=== PATIENT | female | born 1970 | race Hispanic/Latino ===

== ENCOUNTER 2016-04-04 21:45 | Emergency (ER) | payer MEDICARE, MEDICAID ==
[~2016-04-04] VITALS: Ht 162.6 cm; Wt 95.0 kg
[~2016-04-04 21:45] MED LIST: CYCL5TAB PO; PRE20 PO
[2016-04-04 22:02] VITALS: BP 183/110; PULSE 88; RESP 18; O2SAT 97
--- NOTE | 2016-04-05 00:47 | ED.REPORT ---
HPI-General Illness Date of Service Apr 05, 2016 ED Provider: Mando Richmond MD This patient is a 45 year old female with a history of fibromyalgia presenting to the ED complaining of exacerbation of fibromyalgia since this afternoon. Pt. states she has been feeling febrile and normally feels like this during episodes of fibromyalgia exacerbation. She takes medicine for fibromyalgia but ran out some time ago. She does not remember what this medication is, but it normally relieves her fibromyalgia. Patient denies chest pain, shortness of breath, cough, sore throat, rhinorrhea, abdominal pain, diarrhea, constipation, or dysuria. Nursing Notes Stated Complaint: BODY ACHES,FIBROMYALGIA Chief Complaint: General Complaint Nursing Notes Reviewed: Yes Allergies: Coded Allergies: No Known Allergies (Verified , 08/01/08) Scheduled Prednisone (PredniSONE) 20 Mg Tablet 40 MG PO DAILY Scheduled PRN Cyclobenzaprine (Cyclobenzaprine) 5 Mg Tablet 5 MG PO TID PRN PRN Spasm Ibuprofen (Ibuprofen) 800 Mg Tablet 800 MG PO TID PRN PRN For Pain General Time Seen by MD: 00:46 Chief Complaint Fever Hx Obtained From: Patient Arrived By: Walk-in Sudden in Onset?: No Onset Occurred: 5 - 8 hours ago Symptom Duration: Since onset Recent Healthcare: No recent doctor visit, No recent hospitalization Similar Sx Previous: Yes Past Medical History Past Medical History Fibromyalgia Reports: Hypertension Past Surgical History None reproted Smoking History Current Every Day Smoker Social History Other Social History: Local resident Ambulatory Status Independent Review of Systems Full Review of Systems Constitutional: Reports: Fever Ears / Nose / Throat: Denies: Sore throat Respiratory: Denies: Non-productive cough Cardiovascular: Denies: Chest pain GI: Denies: Abdominal pain, Constipation, Diarrhea Female: Denies: Dysuria Allergy / Immune: Denies: Rhinorrhea Complete sys rev & neg: except as marked. Physical Exam Vital Signs Vital Signs Date Time Temp Pulse Resp B/P Pulse Ox O2 Delivery O2 Flow Rate FiO2 04/05/16 01:56 82 18 161/89 96 Room Air 04/04/16 22:02 36.6 88 18 183/110 97 Room Air Initial VS: Reviewed General/Constitutional: Well-developed, Well-nourished Head / Eyes: Atraumatic, Normocephalic, PERRL Neck: Supple, Non-tender, Full range of motion Respiratory: Breath sounds normal, Clear to auscultation, No respiratory distress Cardiovascular: Regular rate & rhythm, Heart sounds normal, Intact distal pulses Abdomen / GI: Soft, Non-tender, No guarding, No rebound, No distention Extremities: Vascular intact, Neuro intact Skin: Warm, Dry, No cyanosis Neurologic: Alert, Oriented, Nonfocal Psychiatric: Mood/affect normal, Behavior normal, Normal thought content General/Constitutional: Awake, Alert ENT: Atraumatic, Mucous membranes moist, Pharynx NL Interpretation & Diagnostics Lab Results Interpretation Lab Results Interpretation: NEGATIVE FOR INFLUENZA TYPE A AND B Re-Eval/Medical Decision Med Decision/Clinical Course 45-year-old female history of fibromyalgia presenting complaining of feeling "hot" all over since earlier today. She reports she normally feels this way when she has her fibromyalgia flares. She takes an unknown pill and this usually makes it better. No other associated symptoms. Her vital signs are stable. She is afebrile. Patient was given 1 dose of Toradol and felt much better and all of her symptoms resolved. Give her prescription for ibuprofen. Recommend she follow up with her primary doctor for further management of her fibromyalgia. She also needs a blood pressure recheck blood pressure was elevated here today. Return precautions given. Source of Hx: Old records, Family Time of Eval: 01:10 Patient Status: Condition improved Re-Evaluation/Progress Note: Pt. feels better after shot of Toradol. Ready for discharge. Pt. understands and agrees with plan. All questions have been addressed at this time. Counseled Regarding: Diagnosis, Lab results, Need for follow-up, When/why to return to ED Discharge & Departure Primary Impression: Hypertension Hypertension type: unspecified secondary hypertension Hypertension goal: unspecified goal Qualified Code: I15.9 - Secondary hypertension, unspecified Additional Impression: Myalgia Disposition: Home Discharge Condition All VS Reviewed: Yes Condition: Stable Patient Instructions: Chronic Hypertension (ED), Fibromyalgia (ED) Additional Instructions: Thank you for entrusting your care with us today. Take Ibuprofen needed for pain. Follow up with your primary care provider later this week. Return to the emergency room for fever, shortness of breath, chest pain, abdominal pain, or new or concerning symptoms. Steph por confiar schofield atencin con nosotros hoy. [place] ibuprofeno para el dolor. Seguimiento con schofield mdico de atencin primaria ms adelante esta semana. Volver a la kay de urgencias por fiebre, dificultad para respirar, dolor en el pecho, dolor abdominal o sntomas nuevos o sobre. Referrals: [facility] (PCP) Scribe Attestation Portions of this note were transcribed by Terese Enamorado and Yoanna Beck. I, Dr. Richmond personally performed the history, physical exam and medical decision-making; I reviewed and confirmed the accuracy of the information in the transcribed note. Signed by: Terese Enamorado and Yoanna Beck, [place], 2016 and 0210. copies to: [facility] Mando Richmond MD Apr 05, 2016 00:47 Leena Beck [Yoanna] Apr 05, 2016 00:57 TERESE ENAMORADO Apr 05, 2016 02:10
[2016-04-05] MEDS ORDERED: Ketorolac 30 mg/mL 2 mL Inj IM ONE (00:55)
[2016-04-05] MEDS ORDERED: IBUP800T28 PO (01:51)
[2016-04-05 01:56] VITALS: BP 161/89; PULSE 82; RESP 18; O2SAT 96
== END 2016-04-05 01:55 | disposition home or self-care (01) ==
LOC: SED 21:45
DX: M79.7 Fibromyalgia (principal); I15.9 Secondary hypertension, unspecified; R50.9 Fever, unspecified; F17.200 Nicotine dependence, unspecified, uncomplicated
CPT/HCPCS: 87804; 96372; 99284; J1885